=== PATIENT | male | born 1985 | race African-American/Black ===

== ENCOUNTER 2023-10-06 08:43 | Emergency (ER) | payer SELFPAY ==
[~2023-10-06] VITALS: Ht 185.4 cm; Wt 90.9 kg
[2023-10-06 08:50] VITALS: BP 128/73; PULSE 111; RESP 20; TEMP 98.5
== END 2023-10-06 09:45 | disposition left against medical advice (07) ==
LOC: EMS 08:43
DX: Z53.21 Procedure and treatment not carried out due to patient leaving prior to being seen by health care provider (principal)

== ENCOUNTER 2023-11-08 19:29 | Inpatient (IN) | payer MEDICAID ==
[~2023-11-08] VITALS: Ht 193 cm; Wt 105.7 kg
[~2023-11-08 19:29] MED LIST: RISP-31 PO
[2023-11-08 21:55] LABS: BASOPHILS % (AUTO) 1.1 % (0.0-2.0); EOSINOPHILS % (AUTO) 0.3 % (1.0-6.0); HEMATOCRIT 44.4 % (41-53); HEMOGLOBIN 14.7 g/dL (13.5-17.5); LYMPHOCYTES # (AUTO) 2.7 K/uL (1.0-4.8); LYMPHOCYTES % (AUTO) 21.6 % (22.0-44.0); MEAN CORPUSCULAR HEMOGLOBIN 30.8 pg (26.0-34.0); MEAN CORPUSCULAR HGB CONC 33.2 G/dL (31.0-37.0); MEAN CORPUSCULAR VOLUME 93 fL (80-100); MONOCYTES # (AUTO) 0.8 K/uL (0.1-1.0); MONOCYTES % (AUTO) 6.3 % (2.0-9.0); NEUTROPHILS # (AUTO) 8.7 K/uL (1.8-7.7); NEUTROPHILS % (AUTO) 70.7 % (40.0-70.0); PLATELET COUNT (AUTO) 392 K/uL (150-450); RED BLOOD CELL COUNT(AUTO) 4.78 MIL/uL (4.50-5.90); RED CELL DISTRIBUTION WIDTH 13.3 % (11.5-14.5); WHITE BLOOD COUNT (AUTO) 12.4 K/uL (4.5-11.0)
[2023-11-08 22:04] LABS: CARBON DIOXIDE 23 mmol/L (22-29); CHLORIDE 104 mmol/L (98-107); POTASSIUM 3.5 mmol/L (3.5-5.1); SODIUM SERUM 138 mmol/L (136-145)
[2023-11-08 22:05] LABS: ANION GAP 11 mmol/L (8-16); CREATININE 0.85 mg/dL (0.60-1.30); GLOMERULAR FILTR. RATE CALC > 60 mL/min (>60); GLUCOSE,RANDOM 85 mg/dL (70-110); UREA NITROGEN, BLOOD 17 mg/dL (7-18)
[2023-11-08 22:12] LABS: ALCOHOL, BLOOD (SERUM) < 3 mg/dL (0-10)
[2023-11-08 23:31] LABS: COVID AG,FIA SOURCE NASAL SWAB
[2023-11-08 23:36] LABS: PH,URINE DRUG SCREEN 5.5 (5.0-8.0)
[2023-11-08 23:38] LABS: SARS-COV2 (COVID) ANTIGEN,FIA Negative (Negative)
[2023-11-08 23:45] LABS: ALCOHOL, URINE DRUG SCREEN NEGATIVE (NEGATIVE); AMPHET/METH SCREEN,URINE NEGATIVE (NEGATIVE); BARBITURATE SCREEN, URINE NEGATIVE (NEGATIVE); BENZODIAZEPINES SCREEN,URINE NEGATIVE (NEGATIVE); CANNABINOID SCREEN,URINE NEGATIVE (NEGATIVE); COCAINE SCREEN,URINE NEGATIVE (NEGATIVE); METHADONE SCREEN, URINE NEGATIVE (NEGATIVE); OPIATE SCREEN,URINE NEGATIVE (NEGATIVE); PHENCYCLIDINE SCREEN,URINE NEGATIVE (NEGATIVE)
[2023-11-08] MEDS: LORazepam 2 MG TABLET PO ONE (23:56)
[2023-11-09] MEDS ORDERED: HALOPERIDOL 5 MG TABLET PO PRN (02:15)
[2023-11-09 06:02] VITALS: BP 113/63; PULSE 87; RESP 18; TEMP 97.5
[2023-11-09 06:22] VITALS: BP 113/63; PULSE 87; RESP 18; TEMP 97.5; O2SAT 97
[2023-11-09] MEDS: LORazepam 2 MG TABLET PO PRN (09:12)
[2023-11-09 09:28] VITALS: BP 113/64; PULSE 87; RESP 17; TEMP 98.6; O2SAT 97
[2023-11-09] MEDS ORDERED: DOCUSATE SODIUM 100 MG CAPSULE PO PRN (10:45)
[2023-11-09] MEDS ORDERED: CloNIDine HCL 0.1 MG TABLET PO PRN (10:45)
[2023-11-09] MEDS ORDERED: BENZOCAINE/MENTHOL LOZENGE PO PRN (10:45)
[2023-11-09] MEDS ORDERED: PETROLATUM,WHITE 28 GM JELLY TP PRN (10:45)
[2023-11-09] MEDS ORDERED: BACITRACIN 28 GM OINTMENT TP PRN (10:45)
[2023-11-09] MEDS ORDERED: OMEPRAZOLE 20 MG CAPSULE PO PRN (10:45)
[2023-11-09] MEDS ORDERED: ONDANSETRON HCL 4 MG TABLET PO PRN (10:45)
[2023-11-09] MEDS ORDERED: ALBUTEROL SULFATE HFA 90 MCG/PUFF 8 GM INHALER IH PRN (10:45)
[2023-11-09] MEDS ORDERED: MAGNESIUM HYDROXIDE SUSPENSION 30 ML UDCUP PO PRN (10:45)
[2023-11-09] MEDS ORDERED: LOPERAMIDE HCL 2 MG CAPSULE PO PRN (10:45)
[2023-11-09] MEDS ORDERED: MAG HYDROX/ALUMINUM HYD/SIMETH ES 30 ML SUSPENSION UDCUP PO PRN (10:45)
[2023-11-09] MEDS: RisperiDONE 1 MG TABLET PO SCH (16:14)
[2023-11-09] MEDS: ZOLPIDEM TARTRATE 10 MG TABLET PO PRN (20:40)
[2023-11-09 21:37] VITALS: BP 119/79; PULSE 92; RESP 18; TEMP 98
[2023-11-10 10:11] VITALS: BP 126/82; PULSE 89; RESP 18; TEMP 98.2; O2SAT 99
[2023-11-10 20:12] VITALS: BP 126/76; PULSE 94; RESP 17; TEMP 98; O2SAT 99
[2023-11-11 08:22] VITALS: BP 102/58; PULSE 61; RESP 17; TEMP 97.7; O2SAT 98
[2023-11-11 09:04] VITALS: RESP 17
[2023-11-11] MEDS: ACETAMINOPHEN 325 MG TABLET PO PRN (09:04)
[2023-11-11 10:04] VITALS: RESP 17
[2023-11-11 20:31] VITALS: BP 111/64; PULSE 85; TEMP 97.7; O2SAT 100
[2023-11-12 08:20] VITALS: BP 113/78; PULSE 82; RESP 17; TEMP 97.8; O2SAT 97
[2023-11-12 20:20] VITALS: BP 116/58; PULSE 83; RESP 16; TEMP 97.5; O2SAT 98
[2023-11-13 08:43] VITALS: BP 111/69; PULSE 85; RESP 18; TEMP 97.7; O2SAT 99
[2023-11-13 20:19] VITALS: BP 112/69; PULSE 66; RESP 17; TEMP 97.7; O2SAT 99
[2023-11-14 08:08] VITALS: BP 129/85; PULSE 81; RESP 17; TEMP 98; O2SAT 99
[2023-11-14 20:57] VITALS: BP 129/77; PULSE 84; RESP 18; TEMP 97.4; O2SAT 100
[2023-11-15 09:17] VITALS: BP 114/83; PULSE 79; RESP 17; TEMP 97.2; O2SAT 99
[2023-11-15 20:38] VITALS: BP 109/76; PULSE 85; RESP 16; TEMP 98.2
[2023-11-16 13:11] VITALS: BP 128/70; PULSE 60; RESP 18; TEMP 97.8; O2SAT 98
[2023-11-16 20:24] VITALS: BP 119/59; PULSE 119; RESP 18; TEMP 97.6
[2023-11-17 09:26] VITALS: BP 127/73; PULSE 71; RESP 16; TEMP 97.7; O2SAT 100
[2023-11-17 22:00] VITALS: RESP 16
[2023-11-18 11:12] VITALS: BP 118/79; PULSE 81; RESP 16; TEMP 97.5; O2SAT 100
[2023-11-18 20:45] VITALS: BP 117/83; PULSE 84; RESP 17; TEMP 97.8; O2SAT 96
[2023-11-19 08:48] VITALS: BP 147/85; PULSE 88; RESP 18; TEMP 97.8; O2SAT 98
[2023-11-19 20:05] VITALS: BP 122/79; PULSE 74; RESP 18; TEMP 97.5; O2SAT 99
[2023-11-20 08:50] VITALS: BP 113/76; PULSE 86; RESP 17; TEMP 97.8; O2SAT 96
[2023-11-20 19:23] VITALS: RESP 19
[2023-11-20] MEDS: IBUPROFEN 600 MG TABLET PO PRN (19:23)
[2023-11-20 20:09] VITALS: BP 128/79; PULSE 74; RESP 18; TEMP 97.7; O2SAT 99
[2023-11-20 20:23] VITALS: RESP 17
[2023-11-21 08:39] VITALS: BP 120/71; PULSE 82; RESP 17; TEMP 97.6; O2SAT 97
== END 2023-11-21 18:08 | disposition home or self-care (01) | DRG 750 ==
LOC: EMS 19:29 → B3A 11-09 04:16
PROVIDERS: ADMIT Psychiatry & Neurology Psychiatry; ATTEND Psychiatry & Neurology Psychiatry
DX: F20.9 Schizophrenia, unspecified (principal); R45.851 Suicidal ideations; F31.30 Bipolar disorder, current episode depressed, mild or moderate severity, unspecified; G47.00 Insomnia, unspecified; Z20.822 Contact with and (suspected) exposure to COVID-19; K59.00 Constipation, unspecified; F41.9 Anxiety disorder, unspecified; F17.200 Nicotine dependence, unspecified, uncomplicated
CPT/HCPCS: 80048; 80307; 85025; 87081; 99285; G0480